=== PATIENT | female | born 1990 | race Caucasian/White ===

== ENCOUNTER 2018-08-04 12:02 | Outpatient (CLI) | payer BC ==
[~2018-08-04] VITALS: Ht 162.6 cm; Wt 100.0 kg
[~2018-08-04 12:02] MED LIST: IBUP-1222 PO
[2018-08-04 12:22] VITALS: BP 107/61
[2018-08-04 12:51] LABS: MICROSCOPIC NOT IND
[2018-08-04] MEDS ORDERED: BETAMETHASONE 6 MG/ML, 5ML IM ONE (12:57)
[2018-08-04] MEDS ORDERED: BETAMETHASONE 6 MG/ML, 5ML IM SCH (13:00)
== END 2018-08-04 14:42 | disposition home or self-care (01) ==
LOC: LDOP 12:02
PROVIDERS: ATTEND Obstetrics & Gynecology
DX: O60.03 Preterm labor without delivery, third trimester (principal); Z3A.28 28 weeks gestation of pregnancy
CPT/HCPCS: 59025; 81003; 87086; 96372; 99211; J0702; G0463

== ENCOUNTER 2018-08-05 13:08 | Outpatient (CLI) | payer BC ==
[~2018-08-05] VITALS: Ht 162.6 cm; Wt 100.0 kg
[~2018-08-05 13:08] MED LIST changes: +BETAMETHASONE 6 MG/ML, 5ML IM SCH
[2018-08-05 13:22] VITALS: BP 108/68
== END 2018-08-05 15:34 | disposition home or self-care (01) ==
LOC: LDOP 13:08
PROVIDERS: ATTEND Physician Assistant
DX: Z34.83 Encounter for supervision of other normal pregnancy, third trimester (principal); Z23 Encounter for immunization; Z3A.28 28 weeks gestation of pregnancy
CPT/HCPCS: 59025; 96372; 99211; J0702; G0463

== ENCOUNTER 2018-09-06 16:41 | Outpatient (CLI) | payer BC ==
[~2018-09-06] VITALS: Ht 162.6 cm; Wt 102.2 kg
[~2018-09-06 16:41] MED LIST changes: -BETAMETHASONE 6 MG/ML, 5ML IM SCH
[2018-09-06 17:15] VITALS: BP 120/60
[2018-09-06 17:50] LABS: MICROSCOPIC INDICATED
[2018-09-06] MEDS ORDERED: VALA500T PO (18:07)
[2018-09-06] MEDS ORDERED: PREN1TAB10 PO (18:08)
== END 2018-09-06 18:37 | disposition home or self-care (01) ==
LOC: LDOP 16:41
PROVIDERS: ATTEND Obstetrics & Gynecology
DX: O26.893 Other specified pregnancy related conditions, third trimester (principal); O62.8 Other abnormalities of forces of labor; R10.9 Unspecified abdominal pain; Z79.2 Long term (current) use of antibiotics; Z3A.33 33 weeks gestation of pregnancy
CPT/HCPCS: 59025; 81001; 87086; 99211; G0463

== ENCOUNTER 2018-10-13 10:51 | Outpatient (CLI) | payer BC ==
[~2018-10-13] VITALS: Ht 162.6 cm; Wt 107.2 kg
[~2018-10-13 10:51] MED LIST changes: +PREN1TAB10 PO; +VALA500T PO
[2018-10-13 11:16] VITALS: BP 113/66
== END 2018-10-13 12:25 | disposition home or self-care (01) ==
LOC: LDOP 10:51
PROVIDERS: ATTEND Obstetrics & Gynecology
DX: O26.893 Other specified pregnancy related conditions, third trimester (principal); R10.9 Unspecified abdominal pain; Z3A.38 38 weeks gestation of pregnancy
CPT/HCPCS: 59025; 99211; G0463

== ENCOUNTER 2018-10-16 12:04 | Inpatient (IN) | payer BC ==
[~2018-10-16] VITALS: Ht 162.6 cm; Wt 107.2 kg
[2018-10-16] MEDS ORDERED: OXYTOCIN 30U/ 0.9% NaCL 500ML 500 ML IV ONE (12:42)
[2018-10-16] MEDS ORDERED: LACTATED RINGERS 1,000 ML IV SCH (12:42)
[2018-10-16] MEDS ORDERED: D5%-LACTATED RINGERS 1,000 ML IV SCH (12:42)
[2018-10-16] MEDS ORDERED: FENTANYL/BUPIV./NS/PF 250 ML EPIDCONT SCH (12:45)
[2018-10-16] MEDS ORDERED: EPHEDRINE 50 MG/ML, 1ML IVPush PRN (13:00)
[2018-10-16] MEDS ORDERED: LACTATED RINGERS 1,000 ML IVBOLUS PRN (13:00)
[2018-10-16] MEDS ORDERED: ONDANSETRON 2MG/ML, 2ML IVPush PRN (13:00)
[2018-10-16] MEDS ORDERED: FENTANYL PF 100 MCG/2ML IVPush PRN (13:00)
[2018-10-16] MEDS ORDERED: CALCIUM CARBONATE 500 MG TAB.CHEW PO PRN ×2 (13:00→19:00)
[2018-10-16] MEDS ORDERED: FENTANYL PF 100 MCG/2ML IV PRN (13:00)
[2018-10-16 13:13] LABS: MEAN CORPUSCULAR HGB CONC 34.4 g/dL (32.4-35.8); MEAN PLATELET VOLUME 8.3 fL (7.4-10.4); PLATELET COUNT 269 x10^3/uL (130-400); RED BLOOD COUNT 4.04 x10^6/uL (3.82-5.3); RED CELL DISTRIBUTION WIDTH 14.4 % (9.6-15.2)
[2018-10-16] MEDS ORDERED: OXYTOCIN 30U/ 0.9% NaCL 500ML 500 ML ONE (13:26)
[2018-10-16] MEDS ORDERED: OXYTOCIN 30U/ 0.9% NaCL 500ML 500 ML IV PRN (13:32)
[2018-10-16 13:44] LABS: BASOPHILS # (AUTO) 0.02 x10^3/uL (0-0.1); BASOPHILS % (AUTO) 0 % (0-1); EOSINOPHILS # (AUTO) 0.02 x10^3/uL (0-0.4); EOSINOPHILS % (AUTO) 0 % (1-7); LYMPHOCYTES % (AUTO) 30 % (22-44); MD SCAN; MONOCYTES # (AUTO) 0.29 x10^3/uL (0.2-0.8); MONOCYTES % (AUTO) 5 % (2-9); NEUTROPHILS # (AUTO) 3.94 x10^3/uL (1.8-6.8); NEUTROPHILS % (AUTO) 65 % (42-75)
[2018-10-16] MEDS ORDERED: MISOPROSTOL 200 MCG TABLET ONE (17:17)
[2018-10-16] MEDS ORDERED: LIDOCAINE 1%, 20ML ONE (17:17)
[2018-10-16] MEDS ORDERED: NEWBORN KIT ONE (17:17)
[2018-10-16] MEDS: OXYTOCIN 30U/ 0.9% NaCL 500ML 500 ML IV SCH (18:48)
[2018-10-16] MEDS: LACTATED RINGERS 1,000 ML IV SCH ×2 (18:56→20:45)
[2018-10-16] MEDS ORDERED: ACETAMINOPHEN 325 MG TABLET PO PRN ×2 (19:00)
[2018-10-16] MEDS ORDERED: DIPH,PERTUSS(ACELL),TET VAC/PF NC IM-VACC PRN (19:00)
[2018-10-16] MEDS ORDERED: OXYcodone/APAP 5/325MG TABLET PO PRN ×2 (19:00)
[2018-10-16] MEDS ORDERED: MAGNESIUM HYDROXIDE 8%, 30ML UDC PO PRN (19:00)
[2018-10-16] MEDS ORDERED: MEASLES,MUMPS&RUBELLA VACC/PF 0.5 ML SQ-VACC PRN (19:00)
[2018-10-16] MEDS ORDERED: ONDANSETRON 2MG/ML, 2ML IV PRN (19:00)
[2018-10-16] MEDS ORDERED: MISOPROSTOL 200 MCG TABLET PR PRN (19:00)
[2018-10-16] MEDS ORDERED: RHOGAM FROM BLOOD BANK 1 NOTE EA IM/IV ONE (19:00)
[2018-10-16] MEDS ORDERED: DOCUSATE 100 MG CAPSULE PO PRN (19:00)
[2018-10-16] MEDS ORDERED: IBUPROFEN 600 MG TABLET ONE (19:22)
[2018-10-16] MEDS: IBUPROFEN 600 MG TABLET PO PRN (19:25)
[2018-10-16 20:50] VITALS: BP 99/63
[2018-10-17 00:45] VITALS: BP 100/63
[2018-10-17] MEDS: IBUPROFEN 600 MG TABLET PO PRN ×2 (01:55→08:05)
[2018-10-17 02:48] LABS: MEAN CORPUSCULAR HEMOGLOBIN 32.2 pg (27.0-34.8); MEAN CORPUSCULAR HGB CONC 34.6 g/dL (32.4-35.8); MEAN CORPUSCULAR VOLUME 93.3 fL (80-100); MEAN PLATELET VOLUME 8.3 fL (7.4-10.4); PLATELET COUNT 253 x10^3/uL (130-400); RED CELL DISTRIBUTION WIDTH 14.8 % (9.6-15.2)
[2018-10-17 03:04] LABS: MD YES
[2018-10-17 03:08] LABS: BAND#(MANUAL) 0.08 x10^3/uL; BANDS%(MANUAL) 1 % (0-7); LYMPH#(MANUAL) 2.11 x10^3/uL (1-3.4); LYMPHS% (MANUAL) 26 % (22-44); MONOS#(MANUAL) 0.08 x10^3/uL (0.3-2.7); MONOS% (MANUAL) 1 % (2-9); SEG#(MANUAL) 5.83 x10^3/uL (1.8-6.8); SEGS% (MANUAL) 72 % (42-75)
[2018-10-17 03:09] LABS: ANISOCYTOSIS 1+
[2018-10-17 03:10] LABS: <PLATELET ESTIMATE> ADEQUATE; <PLT MORPHOLOGY> NORMAL PLT MORPH
[2018-10-17] MEDS: LACTATED RINGERS 1,000 ML IV SCH ×2 (04:45→12:45)
[2018-10-17] MEDS: OXYTOCIN 30U/ 0.9% NaCL 500ML 500 ML IV SCH ×2 (04:48→14:48)
[2018-10-17 05:25] VITALS: BP 100/66
[2018-10-17 08:16] VITALS: BP 109/75
[2018-10-17] MEDS ORDERED: PRENATAL VIT/IRON/FA 1 EACH TABLET PO SCH (09:00)
[2018-10-17] MEDS ORDERED: IBUP-1222 PO (11:40)
[2018-10-17 13:00] VITALS: BP 104/70
== END 2018-10-17 17:46 | disposition home or self-care (01) | DRG 806 ==
LOC: LDOP 12:04 → LDIP 12:42 → 2NW 20:45
PROVIDERS: ADMIT Obstetrics & Gynecology; ATTEND Obstetrics & Gynecology
PROC: 10E0XZZ Delivery of Products of Conception, External Approach (ICD-10-PCS; principal; 2018-10-16)
PROC: 10907ZC Drainage of Amniotic Fluid, Therapeutic from Products of Conception, Via Natural or Artificial Opening (ICD-10-PCS; 2018-10-16)
DX: O69.1XX0 Labor and delivery complicated by cord around neck, with compression, not applicable or unspecified (principal); O98.52 Other viral diseases complicating childbirth; Z37.0 Single live birth; Z3A.39 39 weeks gestation of pregnancy; O71.89 Other specified obstetric trauma; B00.9 Herpesviral infection, unspecified
CPT/HCPCS: 36415; 82803; 85025; 86850; 86900; G0378; J2590; J7120